=== PATIENT | female | born 1955 ===

== ENCOUNTER 2017-08-11 06:15 | Day surgery (SDC) | payer OTHER ==
[~2017-08-11 06:15] MED LIST: GANODERMA PO; PRAVACHOL80 MG PO
== END 2017-08-11 14:10 | disposition home or self-care (01) ==
LOC: CIR.AMB 06:15 → ADM 08:00 → CIR.AMB 14:10
DX: D05.81 Other specified type of carcinoma in situ of right breast (principal); Z90.13 Acquired absence of bilateral breasts and nipples

== ENCOUNTER 2022-03-26 13:25 | Inpatient (IN) | payer OTHER ==
[~2022-03-26] VITALS: Ht 157.5 cm; Wt 71.2 kg
== END 2022-04-12 22:49 | disposition home or self-care (01) | DRG 584 ==
LOC: MEDJ 13:25 → SURG 13:25 → MEDJ 04-01 21:50
PROVIDERS: Plastic Surgery; ADMIT Internal Medicine; ATTEND Internal Medicine
PROC: BH02ZZZ Plain Radiography of Bilateral Breasts (ICD-10-PCS; 2022-03-26)
PROC: BW24ZZZ Computerized Tomography (CT Scan) of Chest and Abdomen (ICD-10-PCS; 2022-03-27)
PROC: 0H95XZX Drainage of Chest Skin, External Approach, Diagnostic (ICD-10-PCS; 2022-04-01)
PROC: 8E0ZXY6 Isolation (ICD-10-PCS; 2022-04-02)
PROC: 4A12X4Z Monitoring of Cardiac Electrical Activity, External Approach (ICD-10-PCS; 2022-04-02)
PROC: XW033E5 Introduction of Remdesivir Anti-infective into Peripheral Vein, Percutaneous Approach, New Technology Group 5 (ICD-10-PCS; 2022-04-03)
PROC: BW24ZZZ Computerized Tomography (CT Scan) of Chest and Abdomen (ICD-10-PCS; 2022-04-07)
PROC: 0HPT0JZ Removal of Synthetic Substitute from Right Breast, Open Approach (ICD-10-PCS; 2022-04-12)
PROC: 0H9U00Z Drainage of Left Breast with Drainage Device, Open Approach (ICD-10-PCS; 2022-04-12)
PROC: 0HPU0JZ Removal of Synthetic Substitute from Left Breast, Open Approach (ICD-10-PCS; principal; 2022-04-12 12:30)
DX: N61.1 Abscess of the breast and nipple (principal); U07.1 COVID-19; Z85.3 Personal history of malignant neoplasm of breast; Z08 Encounter for follow-up examination after completed treatment for malignant neoplasm